=== PATIENT | male | born 1990 | race Caucasian/White ===

== ENCOUNTER 2018-06-17 02:24 | Emergency (ER) | payer OTHER ==
[2018-06-17 02:32] VITALS: BP 157/82
[2018-06-17] MEDS ORDERED: LIDOCAINE 4%/MENTHOL 1% PATCH TD ONE (03:17)
--- NOTE | 2018-06-17 03:17 | EDPHY ---
H & P Stated Complaint: Rib injury Source: Patient Exam Limitations: No limitations - Personal History Current Tetanus Diphtheria and Acellular Pertussis (TDAP): Yes - Medical/Surgical History Hx Asthma: No Hx Chronic Respiratory Disease: No Hx Diabetes: No Hx Cardiac Disease: No Hx Renal Disease: No Hx Cirrhosis: No Hx Alcoholism: No Hx HIV/AIDS: No Hx Splenectomy or Spleen Trauma: No Other PMH: denies - Social History Smoking Status: Light smoker Time Seen by Provider: 06/17/18 02:27 HPI/ROS: HPI The patient presents with 28-year-old male presents with left-sided anterior chest wall pain which has been present for the last 1 and half weeks since he was elbowed into the left chest while performing [id number]. The pain has been present daily though is worse at night when he lies down. It is sharp in nature and worse with movement as well as taking deep breaths. He has been taking ibuprofen in low doses erratically. He has not had a cough for a fever. He does not have any shortness of breath. He does not have any leg swelling. REVIEW OF SYSTEMS 10 systems were reviewed and negative with the exception of the elements mentioned in the history of present illness. PMHx: Healthy Soc Hx: Nonsmoker, occasional marijuana use PHYSICAL General Appearance: Alert, no distress Eyes: Pupils equal and round no pallor or injection ENT, Mouth: Mucous membranes moist Respiratory: There are no retractions, lungs are clear to auscultation Cardiovascular: Regular rate and rhythm Chest wall: There is left-sided chest wall tenderness in between the ribs anteriorly, there is no point tenderness Gastrointestinal: Abdomen is soft and non-tender, no masses, bowel sounds normal Neurological: A&O, moves all extremities Skin: Warm and dry, no rashes Musculoskeletal: Neck is supple non tender Extremities: symmetrical, full range of motion Psychiatric: Patient is oriented X 3, there is no agitation (RiguzziCharito) Constitutional: Initial Vital Signs Temperature (C) 36.6 C 06/17/18 02:29 Heart Rate 79 06/17/18 02:29 Respiratory Rate 16 06/17/18 02:29 Blood Pressure 157/82 H 06/17/18 02:29 O2 Sat (%) 95 06/17/18 02:29 O2 Delivery Mode Room Air Allergies/Adverse Reactions: No Known Allergies Allergy (Unverified 06/17/18 02:28) Home Medications: Medication Instructions Recorded Adderall 10 MG (*) 06/17/18 Medical Decision Making - Diagnostics Imaging Results: Chest x-ray two views with left-sided rib series demonstrates no pneumothorax, no rib fracture, no pleural effusion, no cardiomegaly, interpreted by me, radiology interpretation is pending. (Charito Carvalho) Differential Diagnosis: 28-year-old male with persistent left-sided chest wall pain after elbowed in the chest during jujitsu 1.5 weeks ago. On exam, he has no external signs of trauma though he is tender in the intercostal spaces on the left anterior chest. Chest x-ray with rib series performed showing no obvious rib fracture or pneumothorax. Pericarditis is also a consideration, however given temporal relationship to injury, feel chest wall contusion is most likely here. I have given him a lidocaine patch. I have instructed him to take ibuprofen around the clock. He is to follow up with primary care if his symptoms continue. ( Charito Carvalho) Other Provider: I was notified by Dr. Cárdenas of the finding of a cavitary lesion which was not initially appreciated by the emergency room physician yesterday. I contacted the patient home. He denies any complaints of fever, cough or congestion. He has no prior history of tuberculosis. I did inform him of the abnormal x-ray finding and need for further imaging including likely CT scan. The patient is comfortable contacting his primary care provider to arrange this follow-up. He does understand the importance of making this appointment within the week to exclude a more serious conditions such as cancer. (Derek Mathur) - Data Points Medications Given: Discontinued Medications Miscellaneous Medication (Icy Hot Lidocaine/Menthol 4%/1% Patch) 1 patch TD EDNOW ONE Stop: 06/17/18 03:18 Last Admin: 06/17/18 03:27 Dose: 1 patch Departure - Departure Disposition: Home, Routine, Self-Care Clinical Impression: Chest wall injury Qualifiers: Encounter type: initial encounter Qualified Code(s): S29.9XXA - Unspecified injury of thorax, initial encounter Condition: Good Instructions: Chest Wall Pain (ED) Additional Instructions: I recommend you take ibuprofen 600 mg every 6 hr for your pain. We will put a lidocaine patch on you here in the ER. If this helps her symptoms you can purchase something similar [id number]. As you should be better in 1-2 days and if not I would like for you to see your primary care doctor. You can use ice packs or heat packs as well to help with the pain. Referrals: NONE *PRIMARY CARE P,. [Primary Care Provider] - As per Instructions
[2018-06-17] MEDS ORDERED: PATCH REMOVAL 1 EA PATCH TD SCH (21:00)
== END 2018-06-17 03:30 | disposition home or self-care (01) ==
DX: S29.9XXA Unspecified injury of thorax, initial encounter (principal); F17.200 Nicotine dependence, unspecified, uncomplicated; W51.XXXA Accidental striking against or bumped into by another person, initial encounter; Y93.75 Activity, martial arts; Y92.9 Unspecified place or not applicable